=== PATIENT | female | born 1965 | race African-American/Black ===

== ENCOUNTER 2023-05-04 16:00 | Outpatient (CLI) | payer BC | END 2023-05-04 16:01 | disposition home or self-care (01) | LOC: SLEEPLAB 16:00 | DX: G47.33 Obstructive sleep apnea (adult) (pediatric) (principal); K21.9 Gastro-esophageal reflux disease without esophagitis; E11.9 Type 2 diabetes mellitus without complications; F41.9 Anxiety disorder, unspecified; E66.9 Obesity, unspecified; G47.00 Insomnia, unspecified; I10 Essential (primary) hypertension; R06.83 Snoring; R53.83 Other fatigue; R09.89 Other specified symptoms and signs involving the circulatory and respiratory systems | CPT/HCPCS: 95810 ==